=== PATIENT | female | born 1990 | race Caucasian/White ===

== ENCOUNTER 2020-02-18 14:55 | Observation (INO) | payer MEDICAID ==
[~2020-02-18] VITALS: Ht 157.5 cm; Wt 96.6 kg
[2020-02-18] MEDS ORDERED: PNV91TAB10 PO (16:25)
== END 2020-02-18 19:45 | disposition home or self-care (01) ==
LOC: MLD 14:55
PROVIDERS: ADMIT Obstetrics & Gynecology; ATTEND Obstetrics & Gynecology
DX: O9A.212 Injury, poisoning and certain other consequences of external causes complicating pregnancy, second trimester (principal); O62.9 Abnormality of forces of labor, unspecified; Z3A.21 21 weeks gestation of pregnancy; V49.9XXA Car occupant (driver) (passenger) injured in unspecified traffic accident, initial encounter; Y93.89 Activity, other specified; Y92.410 Unspecified street and highway as the place of occurrence of the external cause
CPT/HCPCS: 76805; G0378; Q0092